=== PATIENT | female | born 1965 | race Two or more races ===

== ENCOUNTER 2024-01-11 18:58 | Emergency (ER) | payer MEDICAID, SELFPAY ==
--- NOTE | 2024-01-11 19:11 | ED_ITS ---
HPI - Abdominal Pain General Chief Complaint: Abdominal Pain Stated Complaint: abdominal pain Time Seen by Provider: 01/11/24 21:10 Source: patient Mode of arrival: ambulatory Limitations: no limitations History of Present Illness ED Provider: arnaldo AVILES narrative: Patient has chronic abdominal pain for more than 2 months seen her PCP pain is cramping in nature slight nausea no vomiting feel anxious no diarrhea sometimes constipated denies any anxiety but looks anxious Related Data Previous Rx's ?Medication ?Instructions ?Recorded dicyclomine 10 mg capsule 10 mg PO TID PRN abdominal pain 01/11/24 #20 caps Allergies Allergy/AdvReac Type Severity Reaction Status Date / Time acetaminophen Allergy Unknown UNKOWN Verified 01/11/24 19:19 [From TYLENOL-CODEINE #3] alcohol Allergy Anaphylaxis Verified 01/11/24 19:19 From TYLENOL-CODEINE #3 Allergy Unknown UNKOWN Uncoded 12/04/19 18:14 Lactose Intolerant Allergy Unknown Anaphylaxis Uncoded 01/11/24 19:14 SOME MUSCLE RELAXANT Allergy Unknown UNKOWN Uncoded 12/04/19 18:14 Review of Systems Review of Systems Yes all other systems are reviewed and are negative [facility] Social History Social History Smoked in Last 30 Days: No Use of substances other than those prescribed or required for medical reasons: No Advance Directives: No Advance Directives Information Provided: Yes Physical Exam ED Vital Signs: Vital Signs - 24 hr 01/11/24 19:14 01/11/24 20:44 Temperature 98.2 F 97.9 F Pulse Rate 82 71 Respiratory Rate 20 16 Blood Pressure 136/84 125/73 Pulse Oximetry 98 98 Oxygen Delivery Method Room Air Room Air BMI result Body Mass Index 28.8 Appearance: Alert. Oriented X3. No acute distress. Eyes: No pallor or icterus ENT: Pharynx normal. Oral Mucosa moist Neck: Normal inspection. Neck supple. CVS: Normal heart rate and rhythm. Pulses normal. Respiratory: No respiratory distress. Equal air entry bilateral, no wheezing/rales/rhonchi Abdomen: Soft and nontender. Bowel sounds are present, no mass palpable, no CVA tenderness Skin: Skin warm and dry. Normal skin color. Normal skin turgor. Extremities: No lower extremity edema. No calf tenderness Neuro: Oriented X 3. No motor deficit. Course Course Course Narrative: This is an RME performed by Hanna Wick CNP: Additional HPI, ROS, PE not included below will be deferred to primary provider. Patient is a 58-year-old female who presents emergency department for evaluation of diffuse abdominal pain for a while a couple of months, is worse while supine. Has a poor appetite, nausea without vomiting. Reports that she had blood work done 2 weeks ago and there was negative labs for my liver?, these were repeated yesterday and have resulted in her portal (she shows me a basic metabolic panel without any liver function testing, and on review of her portal I do not see the labs from 2 weeks ago). She states that today her pain has become severe and she was also experiencing diarrhea associated with this, denies hematochezia or melena. She reports that she is having burning in the urination part denies to the external genital region/urethra and denies dysuria. Plan: Serum labs, urinalysis Medical Decision Making Medical Decision Making MDM Narrative: Patient with chronic symptoms with anxiety likely IBS patient refused to take any medication as she is afraid of taking medicine will give dicyclomine advised to follow with PCP Lab Data MDM Lab Attestation statement: I reviewed the patient's lab results. 01/11/24 19:45 01/11/24 19:45 Labs: Lab Results 01/11/24 01/11/24 Range/Units 19:45 19:53 WBC 6.4 (4.8-10.8) X10*3/uL RBC 4.66 (4.20-5.50) X10*6/uL Hgb 14.0 (12.0-16.0) g/dl Hct 39.6 (37.0-47.0) % MCV 85.0 (80.0-98.0) fL MCH 30.0 (27.0-33.0) pg MCHC 35.4 H (31.0-35.0) g/dl RDW 13.0 (11.0-16.0) % Plt Count 288 (160-400) X10*3/uL MPV 10.8 (9.4-12.3) fL Immature Gran % (Auto) 0.2 (0.0-0.4) % Neut % (Auto) 47.0 (45-73) % Lymph % (Auto) 41.1 H (20-40) % [place] % (Auto) 7.7 (2-11) % Eos % (Auto) 3.1 (0-4) % Baso % (Auto) 0.9 (0-2) % Lymph # (Auto) 2.6 (1.2-4.9) X10*3/uL [place] # (Auto) 0.5 (0.1-1.2) X10*3/uL Eos # (Auto) 0.2 (0.0-0.4) X10*3/uL Baso # (Auto) 0.1 (0.0-0.2) X10*3/uL Abs Immat Gran (auto) 0.01 (0.00-0.03) X10*3/uL Absolute Neuts (auto) 3.0 (2.0-8.3) x10*3/uL Absolute Nucleated RBC 0.000 (0.0-0.012) X10*3/uL Nucleated RBC % (auto) 0.0 (0.0-0.2) /100WBC Sodium 141 (135-145) mmol/L Potassium 3.7 (3.3-5.1) mmol/L Chloride 108 (96-108) mmol/L Carbon Dioxide 24 (22-29) mmol/L Anion Gap 13 (12-20) BUN 19 H (9-16) mg/dL Creatinine 1.14 (0.5-1.4) mg/dL Estim Creat Clear Calc 52.4 Estimated GFR 49 Random Glucose 126 H (60-115) mg/dL Calcium 9.7 (8.4-10.2) mg/dL Total Bilirubin 0.3 (0.0-1.0) mg/dL AST 29 (5-31) U/L ALT 30 (0-31) U/L Alkaline Phosphatase 80 (39-117) U/L Total Protein 7.1 (6.5-8.0) g/dL Albumin 4.3 (3.5-5.0) g/dL Lipase 41 (8-78) U/L Urine Color Yellow Urine Appearance Clear Urine pH 7.0 (5.0-9.0) Ur Specific [place] 1.025 (1.005-1.025) Urine Protein Negative (Neg-Trace) mg/dL Urine Glucose (UA) Negative (Negative) mg/dL Urine Ketones Trace (Negative) mg/dL Urine Blood Negative (Negative) Urine Nitrite Negative (Negative) Ur Leukocyte Esterase Negative (Negative) Medications Administered Discontinued Medications Generic Name Dose Route Start Last Admin Trade Name Freq PRN Reason Stop Dose Admin Dicyclomine HCl 20 mg 01/11/24 21:48 01/11/24 22:03 Dicyclomine Hcl 10 Mg Capsule PO 01/11/24 21:49 10 mg ONCE ONE Administration Discharge Plan Discharge Clinical Impression: Irritable bowel syndrome Patient Disposition: Home, Self-Care Instructions: Irritable Bowel Syndrome (ED) Additional Instructions: Drink plenty of fluids Continue take your lorazepam Dicyclomine 1 tablet every 8 hours as needed for abdominal pain Follow up with your PCP Prescriptions: New dicyclomine 10 mg capsule 10 mg PO TID PRN (Reason: abdominal pain) Qty: 20 0RF Print Language: Frisian
[2024-01-11 19:14] VITALS: BP 136/84; PULSE 82; RESP 20; TEMP 36.8; O2SAT 98; BMI 28.8
[2024-01-11 19:51] LABS: Basophils Absolute Auto 0.1 X10*3/uL (0.0-0.2); Basophils Percent Auto 0.9 % (0-2); Eosinophils Absolute Auto 0.2 X10*3/uL (0.0-0.4); Eosinophils Percent Auto 3.1 % (0-4); Hematocrit 39.6 % (37.0-47.0); Imm Gran Abs Auto 0.01 X10*3/uL (0.00-0.03); Imm Gran Pct Auto 0.2 % (0.0-0.4); Lymphocytes Absolute Auto 2.6 X10*3/uL (1.2-4.9); Lymphocytes Percent Auto 41.1 % (20-40); MANUAL DIFF FLAG NO; Mean Corpuscular HGB Conc 35.4 g/dl (31.0-35.0); Mean Platelet Volume 10.8 fL (9.4-12.3); Monocytes Absolute Auto 0.5 X10*3/uL (0.1-1.2); Monocytes Percent Auto 7.7 % (2-11); Platelet Count 288 X10*3/uL (160-400); Red Blood Count 4.66 X10*6/uL (4.20-5.50); White Blood Count 6.4 X10*3/uL (4.8-10.8)
[2024-01-11 20:05] LABS: Alanine Aminotransferase 30 U/L (0-31); Albumin Level 4.3 g/dL (3.5-5.0); Alkaline Phosphatase 80 U/L (39-117); Anion Gap 13 (12-20); Aspartate Amino Transferase 29 U/L (5-31); Bilirubin Total 0.3 mg/dL (0.0-1.0); Blood Urea Nitrogen 19 mg/dL (9-16); Calcium 9.7 mg/dL (8.4-10.2); Carbon Dioxide 24 mmol/L (22-29); Chloride 108 mmol/L (96-108); Creatinine Clr Calc Pharmacy 52.4; Estimated Glomerular Filt Rate 49; Glucose Random 126 mg/dL (60-115); Lipase 41 U/L (8-78); Potassium 3.7 mmol/L (3.3-5.1); Sodium 141 mmol/L (135-145); Total Protein 7.1 g/dL (6.5-8.0)
[2024-01-11 20:21] LABS: Appearance Urine Clear; Color Urine Yellow; Glucose Urine UA Negative (Negative); Leukocyte Esterase Urine Negative (Negative); Nitrite Urine Negative (Negative); Specific Gravity - Urine 1.025 (1.005-1.025); Urine Blood Negative (Negative); Urine Ketones Trace mg/dL (Negative); Urine Protein Negative (Neg-Trace)
[2024-01-11 20:44] VITALS: BP 125/73; PULSE 71; RESP 16; TEMP 36.6; O2SAT 98
[2024-01-11] MEDS: Dicyclomine HCl 10 MG CAPSULE 20 MG PO (22:03)
--- NOTE | 2024-01-11 22:04 | PC.NURSE ---
Went into patient's room to medicate patient, patient crying on stretcher, unable to elaborate why she is crying, then stating she really wants to go home. Informed patient that medicine was ordered to help relieve her abd pain, patient states she thinks she is having an allergic reaction to the chemicals in the air . Provider Dr. Muniz okay'd giving patient only 1 pill. Patient accepted one pill, Dr. Muniz to discharge, patient continues to cry intermittently on the stretcher.
[2024-01-11 22:23] VITALS: BP 125/73; PULSE 71; RESP 16; TEMP 36.6; O2SAT 98
== END 2024-01-11 22:24 | disposition home or self-care (01) ==
PROVIDERS: Nurse Practitioner Family; Emergency Provider Internal Medicine; PCP Physician Assistant
DX: K58.9 Irritable bowel syndrome, unspecified (principal); R11.0 Nausea; F41.9 Anxiety disorder, unspecified; Z79.899 Other long term (current) drug therapy
CPT/HCPCS: 36415; 80053; 81003; 83690; 85025; 99283; 99284